=== PATIENT | male | born 1985 | race Caucasian/White ===

== ENCOUNTER 2017-06-15 09:12 | Outpatient (CLI) | payer OTHER ==
[2017-06-15 10:02] LABS: eGFR (African) > 60; eGFR (Non-African) > 60
== END 2017-06-15 09:13 ==
LOC: LAB 09:12
PROVIDERS: ATTEND Physician Assistant
DX: Z13.6 Encounter for screening for cardiovascular disorders (principal)
CPT/HCPCS: 36415; 80053; 80061